=== PATIENT | male | born 1985 | race Hispanic/Latino ===

== ENCOUNTER 2019-03-23 05:55 | Inpatient (IN) | payer SELFPAY ==
[2019-03-23] MEDS ORDERED: MORPHINE 4 MG/ML SYR ONE (06:29)
[2019-03-23] MEDS ORDERED: ONDANSETRON 4 MG/2 ML VIAL ONE ×2 (06:29→10:24)
[2019-03-23] MEDS ORDERED: NA CHLORIDE 0.9% 1,000 ML ONE (06:29)
[2019-03-23 06:32] LABS: Absolute Lymphocytes (CBC) 0.9 K/uL (0.7-4.9); Basophils % 0.6 % (0-1.3); Hematocrit 45.5 % (39.6-49.0); Lymphocytes % 4.7 % (15.3-44.8); MPV 9.1 fL (7.6-11.3)
[2019-03-23 07:24] LABS: ALT/SGPT 41 U/L (12-78); AST/SGOT 28 U/L (15-37); Albumin 4.4 g/dL (3.4-5.0); Alkaline Phosphatase 66 U/L (45-117); BUN Blood Urea Nitrogen 14 mg/dL (7-18); Bicarbonate 26 mmol/L (21-32); Bilirubin Direct 0.2 mg/dL (0-0.2); Bilirubin Total 0.8 mg/dL (0.2-1.0); Glucose Level 132 mg/dL (74-106); Lipase 106 U/L (73-393); Potassium 4.3 mmol/L (3.5-5.1); Protein, Total 8.8 g/dL (6.4-8.2); Sodium Level 135 mmol/L (136-145)
[2019-03-23 07:38] LABS: Blood Morphology Comment NOT SEEN (NOT SEEN); Platelet Estimate ADEQ
--- NOTE | 2019-03-23 08:02 | RAD REPORT ---
EXAM DESCRIPTION: CTAbdomen Pelvis W Contrast - 03/23/2019 7:39 am CLINICAL HISTORY: Abdominal pain. ABD PAIN COMPARISON: No comparisons TECHNIQUE: Biphasic CT imaging of the abdomen and pelvis was performed with 100 ml non-ionic IV cont rast. All CT scans are performed using dose optimization technique as appropriate and may include automated exposure control or mA/KV adjustment according to patient size. FINDINGS: The lung bases are clear. The liver demonstrates diffuse fatty infiltration. The spleen, pancreas, adrenal glands and kidneys a re within normal limits. No bowel obstruction, free air, intra-abdominal free fluid or abscess. The appendix is dilated to 20 mm with surrounding mild inflammation. A large appendicolith is present at the base of the appendix. The findings are compatible with acute appendicitis. Trace free fluid is seen in the pelvis. No evid ence of significant lymphadenopathy. No suspicious bony findings. IMPRESSION: Acute appendicitis.
--- NOTE | 2019-03-23 08:15 | ER ---
Nurse's Notes [facility] Name: Fritz Sanders Age: 33 yrs Sex: Male : 1985 Arrival Date: 03/23/2019 Time: 05:57 Bed 13 Private MD: Diagnosis: Acute appendicitis Presentation: 03/23 06:06 Presenting complaint: Patient states: I am having lower right side abdominal pain that jb4 started yesterday and has continuously gotten worse. I went to [facility] and they told me to come here because it sounded like appendicitis. Transition of care: patient was not received from another setting of care. Onset of symptoms was March 22, 2019. Risk Assessment: Do you want to hurt yourself or someone else? Patient reports no desire to harm self or others. Initial Sepsis Screen: Does the patient meet any 2 criteria? No. Patient's initial sepsis screen is negative. Does the patient have a suspected source of infection? Yes: Acute abdominal pain. Care prior to arrival: None. 06:06 Method Of Arrival: Ambulatory jb4 06:06 Acuity: KRISTI 3 jb4 Historical: - Allergies: 06:08 No Known Allergies; jb4 - Home Meds: 06:08 None [Active]; jb4 - PMHx: 06:08 None; jb4 - PSHx: 06:08 None; jb4 - Immunization history:: Adult Immunizations up to date. - Social history:: Smoking status: Patient/guardian denies using tobacco, Patient/guardian denies using alcohol, street drugs. - Ebola Screening: : No symptoms or risks identified at this time. Screenin:08 Abuse screen: Denies threats or abuse. Nutritional screening: No deficits noted. jb4 Tuberculosis screening: No symptoms or risk factors identified. Fall Risk None identified. Assessment: 06:08 General: Appears in no apparent distress. uncomfortable, Behavior is calm, cooperative, jb4 appropriate for age. Pain: Complains of pain in right lower quadrant Pain does not radiate. Pain currently is 10 out of 10 on a pain scale. Quality of pain is described as stabbing. Neuro: Level of Consciousness is awake, alert, obeys commands, Oriented to person, place, time, situation. Cardiovascular: Patient's skin is warm and dry. Respiratory: Airway is patent Respiratory effort is even, unlabored, Respiratory pattern is regular, symmetrical. GI: Abdomen is round non-distended, Bowel sounds present X 4 quads. Abd is soft X 4 quads Abd is non tender in right upper quadrant, left upper quadrant and left lower quadrant Abdomen is tender to palpation in right lower quadrant Reports lower abdominal pain, nausea. : No deficits noted. No signs and/or symptoms were reported regarding the genitourinary system. EENT: No deficits noted. No signs and/or symptoms were reported regarding the EENT system. Derm: Skin is intact, Skin is pink, warm \T\ dry. Musculoskeletal: Circulation, motion, and sensation intact. Range of motion: intact in all extremities. 06:41 Reassessment: Patient appears in no apparent distress at this time. Patient and/or jb4 family updated on plan of care and expected duration. Pain level reassessed. Patient is alert, oriented x 3, equal unlabored respirations, skin warm/dry/pink. Patient states feeling better. 07:05 General: Appears in no apparent distress. comfortable, Behavior is calm, cooperative. rb1 Pain: Complains of pain in right upper quadrant and right lower quadrant Pain currently is 8 out of 10 on a pain scale. Neuro: Level of Consciousness is awake, alert, obeys commands, Oriented to person, place, time, situation. Cardiovascular: Capillary refill < 3 seconds is brisk in bilateral fingers. Respiratory: Airway is patent Respiratory effort is even, unlabored, Respiratory pattern is regular, symmetrical. Derm: Skin is pink, warm \T\ dry. 08:00 Reassessment: Patient appears in no apparent distress at this time. No changes from rb1 previously documented assessment. 09:00 Reassessment: Patient appears in no apparent distress at this time. Patient and/or rb1 family updated on plan of care and expected duration. Pain level reassessed. Patient is alert, oriented x 3, equal unlabored respirations, skin warm/dry/pink. Family at the bedside. 09:31 Reassessment: Called report to YURIY Hollingsworth. Information from the SBAR was given. All rb1 questions asked and answered. Vital Signs: 06:08 BP 139 / 92; Pulse 64; Resp 18; Temp 98.3; Pulse Ox 100% on R/A; Weight 86.18 kg (R); jb4 Height 5 ft. 10 in. (177.80 cm) (R); Pain 10/10; 07:05 BP 125 / 85; Pulse 60; Resp 17; Pulse Ox 97% on R/A; Pain 8/10; rb1 08:00 BP 118 / 83; Pulse 61; Resp 17; Pulse Ox 98% on R/A; rb1 08:30 BP 134 / 92; Pulse 55; Resp 16; Pulse Ox 99% on R/A; rb1 09:27 BP 118 / 85; Pulse 59; Resp 17; Temp 98.8; Pulse Ox 100% on R/A; Pain 6/10; rb1 06:08 Body Mass Index 27.26 (86.18 kg, 177.80 cm) jb4 ED Course: 05:57 Patient arrived in ED. ds1 06:04 Raghu Delacruz PA is PHCP. jmm 06:04 Troy Merrill MD is Attending Physician. jmm 06:06 Randall Butterfield, YURIY is Primary Nurse. jb4 06:07 Triage completed. jb4 06:08 Arm band placed on right wrist. jb4 06:08 Patient has correct armband on for positive identification. Placed in gown. Bed in low jb4 position. Call light in reach. Side rails up X 1. Pulse ox on. NIBP on. 06:20 Initial lab(s) drawn, by me, sent to lab. Inserted saline lock: 20 gauge in right jb4 forearm, using aseptic technique. Blood collected. 07:42 CT Abd/Pelvis - IV Contrast Only In Process Unspecified. EDMS 08:13 Gus Diaz MD is Hospitalizing Provider. [facility] 08:42 Warm blanket given. Pillow given. [facility] 09:51 No provider procedures requiring assistance completed. Patient admitted, IV remains in rb1 place. Administered Medications: 06:36 Drug: Zofran 4 mg Route: IVP; Site: right forearm; jb4 06:45 Follow up: Response: No adverse reaction; Nausea is decreased jb4 06:38 Drug: morphine 4 mg {Note: Rass score 0.} Route: IVP; Site: right forearm; jb4 06:45 Follow up: Response: No adverse reaction; Pain is decreased; RASS: Alert and Calm (0) 4 06:39 Drug: NS 0.9% 1000 ml Route: IV; Rate: 1 bolus; Site: right forearm; 4 07:42 Follow up: IV Status: Completed infusion rb1 08:38 Drug: Zosyn 3.375 grams Route: IVPB; Infused Over: 60 mins; Site: right antecubital; rb1 09:51 Follow up: Response: No adverse reaction; IV Status: Infusion continued upon admission rb1 Outcome: 08:14 Decision to Hospitalize by Provider. kylie 09:51 Admitted to Med/surg accompanied by tech, family with patient, via wheelchair, room rb1 204, with chart, Report called to YURIY Hollingsworth 09:51 Condition: stable 09:51 Instructed on the need for admit. 09:52 Patient left the ED. rb1 Signatures: Dispatcher [employer] EDMS Raghu Delacruz PA PA [facility] Jessica Hallman ds1 Krystin Galicia, RN RN rb1 Randall Butterfield, YURIY RN jb4 Theresa Diaz [facility]
[2019-03-23] MEDS ORDERED: MORPHINE 4 MG/ML SYR IV PRN (08:16)
[2019-03-23] MEDS ORDERED: PIPER/TAZO/NS 3.375gm 3.375 GM/100 ML BAG ONE (08:16)
[2019-03-23] MEDS ORDERED: ONDANSETRON 4 MG/2 ML VIAL IV PRN (08:16)
--- NOTE | 2019-03-23 08:16 | EDPHYS ---
Physician Documentation [facility] Name: Fritz Sanders Age: 33 yrs Sex: Male : 1985 Arrival Date: 03/23/2019 Time: 05:57 Bed 13 Private MD: ED Physician Troy Merrill HPI: 03/23 06:26 This 33 yrs old Male presents to ER via Ambulatory with complaints of jmm Abdominal Pain. 06:26 The patient presents with abdominal pain. Onset: The symptoms/episode began/occurred jmm gradually, 1 day(s) ago. The symptoms do not radiate. Associated signs and symptoms: Pertinent negatives: testicular pain. The symptoms are described as achy. This is a 33 year old male with no chronic medical conditions that presents to the ED with complaints of right lower abdominal pain beginning 1 day ago. Denies surgical history. Denies vomiting or diarrhea. . Historical: - Allergies: 06:08 No Known Allergies; jb4 - Home Meds: 06:08 None [Active]; jb4 - PMHx: 06:08 None; jb4 - PSHx: 06:08 None; jb4 - Immunization history:: Adult Immunizations up to date. - Social history:: Smoking status: Patient/guardian denies using tobacco, Patient/guardian denies using alcohol, street drugs. - Ebola Screening: : No symptoms or risks identified at this time. ROS: 06:26 Constitutional: Negative for fever, chills, and weight loss, Cardiovascular: Negative jmm for chest pain, palpitations, and edema, Respiratory: Negative for shortness of breath, cough, wheezing, and pleuritic chest pain. 06:26 Neuro: Negative for headache, weakness, numbness, tingling, and seizure. 06:26 Abdomen/GI: Positive for abdominal pain. 06:26 All other systems are negative. Exam: 06:26 Constitutional: This is a well developed, well nourished patient who is awake, alert, jmm and in no acute distress. Head/Face: atraumatic. Eyes: EOMI, no conjunctival erythema appreciated ENT: Moist Mucus Membranes Neck: Trachea midline, Supple Chest/axilla: Normal chest wall appearance and motion. Cardiovascular: Regular rate and rhythm. No edema appreciated Respiratory: Normal respirations, no respiratory distress appreciated 06:26 Back: Normal ROM Skin: General appearance color normal MS/ Extremity: Moves all extremities, no obvious deformities appreciated, no edema noted to the lower extremities Neuro: Awake and alert, normal gait Psych: Behavior is normal, Mood is normal, Patient is cooperative and pleasant 06:26 Abdomen/GI: Inspection: abdomen appears normal, Bowel sounds: normal, Palpation: soft, moderate abdominal tenderness, in the right lower quadrant. 06:26 Back: ROM is normal. 10:26 Eyes: Pupils: kdr Vital Signs: 06:08 BP 139 / 92; Pulse 64; Resp 18; Temp 98.3; Pulse Ox 100% on R/A; Weight 86.18 kg (R); jb4 Height 5 ft. 10 in. (177.80 cm) (R); Pain 10/10; 07:05 BP 125 / 85; Pulse 60; Resp 17; Pulse Ox 97% on R/A; Pain 8/10; rb1 08:00 BP 118 / 83; Pulse 61; Resp 17; Pulse Ox 98% on R/A; rb1 08:30 BP 134 / 92; Pulse 55; Resp 16; Pulse Ox 99% on R/A; rb1 09:27 BP 118 / 85; Pulse 59; Resp 17; Temp 98.8; Pulse Ox 100% on R/A; Pain 6/10; rb1 06:08 Body Mass Index 27.26 (86.18 kg, 177.80 cm) jb4 MDM: 06:13 Patient medically screened. [facility] 08:12 Data reviewed: vital signs, nurses notes. Counseling: I had a detailed discussion with [facility] the patient and/or guardian regarding: the historical points, exam findings, and any diagnostic results supporting the discharge/admit diagnosis, lab results, radiology results, the need for further work-up and treatment in the hospital. ED course: I discussed the patient with Dr. Diaz whom accepted admission. . 03/23 06:13 Order name: Basic Metabolic Panel; Complete Time: 07:26 [facility] 03/23 06:13 Order name: CBC with Diff [facility] 03/23 06:13 Order name: Creatinine for Radiology; Complete Time: 06:54 [facility] 03/23 06:13 Order name: Hepatic Function; Complete Time: 07:26 [facility] 03/23 06:13 Order name: Lipase; Complete Time: 07:26 [facility] 03/23 07:38 Order name: Manual Differential; Complete Time: 07:48 EDMS 03/23 08:22 Order name: Basic Metabolic Panel EDMS 03/23 08:22 Order name: Basic Metabolic Panel EDMS 03/23 08:22 Order name: CBC with Automated Diff EDMS 03/23 08:22 Order name: CBC with Automated Diff EDMS 03/23 08:22 Order name: Lipase EDMS 03/23 08:22 Order name: Lipase EDMS 03/23 08:22 Order name: Liver (Hepatic) Function EDMS 03/23 08:22 Order name: Liver (Hepatic) Function EDMS 03/23 06:13 Order name: IV Saline Lock; Complete Time: 06:46 [facility] 03/23 06:13 Order name: Labs collected and sent; Complete Time: 06:46 [facility] 03/23 06:46 Order name: CT Abd/Pelvis - IV Contrast Only; Complete Time: 08:09 [facility] 03/23 08:22 Order name: NPO; Complete Time: 09:53 [facility] 03/23 08:50 Order name: Type And Screen rb1 Administered Medications: 06:36 Drug: Zofran 4 mg Route: IVP; Site: right forearm; jb4 06:45 Follow up: Response: No adverse reaction; Nausea is decreased jb4 06:38 Drug: morphine 4 mg {Note: Rass score 0.} Route: IVP; Site: right forearm; jb4 06:45 Follow up: Response: No adverse reaction; Pain is decreased; RASS: Alert and Calm (0) jb4 06:39 Drug: NS 0.9% 1000 ml Route: IV; Rate: 1 bolus; Site: right forearm; jb4 07:42 Follow up: IV Status: Completed infusion rb1 08:38 Drug: Zosyn 3.375 grams Route: IVPB; Infused Over: 60 mins; Site: right antecubital; rb1 09:51 Follow up: Response: No adverse reaction; IV Status: Infusion continued upon admission rb1 Disposition: 08:12 Chart complete. [facility] Disposition: 03/23/19 08:14 Hospitalization ordered by Gus Diaz for Inpatient Admission. Preliminary diagnosis is Acute appendicitis. - Bed requested for Telemetry/MedSurg (Inpatient). - Status is Inpatient Admission. rb1 - Condition is Stable. - Problem is new. - Symptoms are unchanged. UTI on Admission? No Addendum: 03/27/2019 07:04 Co-signature as Attending Physician, Troy Merrill MD. r n Signatures: Dispatcher [employer] EDMabel Hatch, RN RN dw Azam Yao MD MD kdr Mickail, Joel, PA PA jmm Nieto, Roman, MD MD rn Krystin Galicia, RN RN rb1 Randall Butterfield, RN RN jb4 Corrections: (The following items were deleted from the chart) 03/23 09:06 08:14 Hospitalization Ordered by Gus Diaz MD for Inpatient Admission. Preliminary dw diagnosis is Acute appendicitis. Bed requested for Telemetry/MedSurg (Inpatient). Status is Inpatient Admission. Condition is Stable. Problem is new. Symptoms are unchanged. UTI on Admission? No. [facility] 09:52 09:06 03/23/2019 08:14 Hospitalization Ordered by Gus Diaz MD for Inpatient rb1 Admission. Preliminary diagnosis is Acute appendicitis. Bed requested for Telemetry/MedSurg (Inpatient). Status is Inpatient Admission. Condition is Stable. Problem is new. Symptoms are unchanged. UTI on Admission? No. dw
[2019-03-23] MEDS: D5 0.45 NS 1,000 ML IV SCH ×2 (10:09→17:38)
[2019-03-23] MEDS ORDERED: PROPOFOL 200 MG/20 ML VIAL IV ONE (10:21)
[2019-03-23] MEDS ORDERED: LIDOCAINE 1% MPF 5 ML VIAL ONE (10:23)
[2019-03-23] MEDS ORDERED: ROCURONIUM 50 MG/5 ML VIAL IV ONE (10:23)
[2019-03-23] MEDS ORDERED: MIDAZOLAM HCL 2 MG/2 ML INJ ONE (10:23)
[2019-03-23] MEDS ORDERED: NEOSTIGMINE 1 MG/ML -5 ML ONE (10:24)
[2019-03-23] MEDS ORDERED: FENTANYL CITR 100 MCG/2 ML ONE ×2 (10:24→11:32)
[2019-03-23] MEDS ORDERED: GLYCOPYRROLATE 0.2 MG/ML SYR ONE ×2 (10:25)
[2019-03-23] MEDS ORDERED: SUCCINYLCHOLINE 20 MG/ML (10 ML) IV ONE (10:45)
[2019-03-23] MEDS ORDERED: Ringers Lactate 1,000 ML IV ONE ×2 (10:52→11:42)
--- NOTE | 2019-03-23 12:00 | P.BOP ---
Preoperative diagnosis: acute appendicitis Postoperative diagnosis: same, acute suppurative appendicitis Primary procedure: Laparoscopic appendectomy Shell Sorter: Karen More (adelita) Estimated blood loss: <10cc Specimen: pollo Findings: acute suppurative appendicitis Anesthesia: General Complications: None Transferred to: Recovery Room Condition: Good
[2019-03-23] MEDS ORDERED: HYDROCODONE/APAP 7.5/325 MG TAB PO PRN (12:03)
[2019-03-23 13:04] VITALS: BMI 27.2
[2019-03-23] MEDS ORDERED: INFLUENZA VACCINE (for 3y+) 0.5 ML DOSE IMVAC ONE (16:00)
[2019-03-23] MEDS: PIPER/TAZO/NS 3.375gm 3.375 GM/100 ML BAG IVPB SCH (17:27)
[2019-03-23] MEDS: ACETAMINOPHEN 500 MG TAB PO PRN (20:00)
--- NOTE | 2019-03-23 20:56 | HP ---
Date of Admission: 03/23/2019 Diagnosis: Acute appendicitis. History Of Present Illness: This is the case of a 33-year-old patient, who comes to us complaining o f a new onset of abdominal pain, 1 day of duration, in the right lower quadrant and periumbilical reg ion. He stated pain is constant, got worse overnight. This morning he comes to the ER. He denies a ny dysuria, hematuria, hematochezia, or melena. Denies any recent traveling out of the country. Den ies any family member sick at home. Denies any trauma. Allergies: NONE. Medical Problems: None. Medications: None. Surgeries: None. Social History: He does smoke. He does not drink alcohol. Review of Systems: Ten points otherwise unremarkable. Physical Examination: General: Patient is awake and alert. HEENT: Pupils are equal and reactive, anicteric. Neck: Supple. Chest: Clear. Heart: S1, S2. Abdomen: Soft and depressible. Right lower quadrant tenderness with Rovsing sign and psoas sign pos itive. Genitalia: No tenderness. Extremities: Full range of motion x4. Good peripheral pulses. Rectal: Deferred. Neurologic: Cranial nerves 2 through 12 grossly within normal limits. Laboratory Data: WBC count of 19, hemoglobin of 15.7, neutrophils 89.1, and potassium 4.3. Sodium i s 135, total bilirubin of 0.8. CAT scan of abdomen and pelvis interpreted with Dr. Vargas as acute pollo endicitis. Assessment And Plan: This is a 33-year-old patient with acute appendicitis, laparoscopic possible op en appendectomy fully explained to the patient, which include, but are not limited to infection, blee ding, damage to adjacent structures, anesthesia complications, myocardial infarction, and even . He also understands this may not relieve any symptoms. He might need more than one surgical interv ention. He understood, signed the consent. The OR was immediately notified. YOBANI Voice ID: [id number]
--- NOTE | 2019-03-23 21:11 | OP ---
Date of Procedure: 03/23/2019 Surgeon: Gus Diaz MD Shell Plater: Karen Chu. Preoperative Diagnosis: Acute appendicitis. Postoperative Diagnosis: Acute suppurative appendicitis. Procedure: Laparoscopic appendectomy. Estimated Blood Loss: Less than 10 cc. Specimen: Appendix. Findings: Acute suppurative appendicitis. Anesthesia: General plus local. Indications: This is the case of a 33-year-old patient, with 1 day history of abdominal pain diagnos ed with acute appendicitis. The benefits, alternatives, and risks of laparoscopic, possible open pollo endectomy discussed with the patient, which include but are not limited to infection, bleeding, damag e to adjacent structures, anesthesia complication, abscess, ND, even . He also understands this may not relieve any symptoms. He might need more than one surgical intervention. He understood, si gned the consent. Description Of Procedure: Patient was brought to the operating room, placed in supine position. Ane sthesia was done without complication. Abdominal area was prepped and draped in usual sterile fashio n. Marcaine 0.5% was injected for local anesthetic, followed by sharp incision of the skin in the in fraumbilical region. Incision was carried down to fascia, which was opened under direct vision. Per itoneum was encountered, opened under direct vision. Vicryl #1 placed inside of the fascia. Efrain trocar was carefully introduced. No bleeding was obtained. I placed 2 more trocars, 5 mm each one o f them suprapubic and left lower quadrant using same technique, which consisted of local anesthetic, sharp incision of the skin, introduction of the trocars under direct vision. This allowed me to visu gavi the very inflamed suppurative appendix. The base of the appendix seems to be spared for that, so we created a window in the base of the appendix, transected that with an Endo ELIZABETH 45 mm 3.5, and t he mesoappendix with an Endo ELIZABETH 45 mm 2.5. Further hemostasis was obtained with the help of hemocli ps. The area was irrigated profusely until completely clean. We did not see any bleeding in the bow el leak. At that moment, I proceeded to remove the trocars under direct vision. Deflated the pneumo peritoneum. Closed the fascia with #1 Vicryl, irrigated subcutaneous tissue, closed that with 3-0 ch romic and skin with ivis. Sponge count and instrument counts were correct. Patient tolerated the procedure well. Patient was sent to the recovery in stable condition. EDDIE/BIRGIT Voice ID: [id number] Report ID: [id number]
[2019-03-24] MEDS: PIPER/TAZO/NS 3.375gm 3.375 GM/100 ML BAG IVPB SCH ×2 (00:35→08:53)
[2019-03-24 06:26] LABS: Potassium 4.4 mmol/L (3.5-5.1)
[2019-03-24 06:40] LABS: Absolute Lymphocytes (CBC) 1.5 K/uL (0.7-4.9); Basophils % 0.5 % (0-1.3); Hematocrit 42.1 % (39.6-49.0); Lymphocytes % 11.9 % (15.3-44.8); MPV 9.4 fL (7.6-11.3); RBC Red Blood Cell Count 4.67 M/uL (4.33-5.43)
[2019-03-24] MEDS: ACETAMINOPHEN 500 MG TAB PO PRN (09:25)
[2019-03-24 13:39] VITALS: BP 137/71; TEMP 97.6
[2019-03-24 16:30] VITALS: O2SAT 96
--- NOTE | 2019-03-24 18:07 | P.DS ---
Admission Date: 03/23/19 Discharge Date: 03/24/19 Disposition: ROUTINE DISCHARGE Discharge Condition: GOOD Vital Signs/Physical Exam: Temp Pulse Resp BP Pulse Ox 97.6 F 78 16 137/71 96 03/24/19 12:00 03/24/19 12:00 03/24/19 12:00 03/24/19 12:00 03/24/19 12:00 General: Alert, Oriented x3, Cooperative HEENT: PERRLA, EOMI Neck: Supple Respiratory: Normal air movement Cardiovascular: No edema Gastrointestinal: Soft and benign Laboratory Data at Discharge: WBC 12.7 K/uL (4.3-10.9) H D 03/24/19 05:29 Hgb 14.5 g/dL (13.6-17.9) 03/24/19 05:29 Hct 42.1 % (39.6-49.0) 03/24/19 05:29 Plt Count 256 K/uL (152-406) 03/24/19 05:29 Sodium 142 mmol/L (136-145) 03/24/19 05:29 Potassium 4.4 mmol/L (3.5-5.1) 03/24/19 05:29 BUN 10 mg/dL (7-18) 03/24/19 05:29 Creatinine 1.10 mg/dL (0.55-1.3) 03/24/19 05:29 Glucose 120 mg/dL (74-106) H 03/24/19 05:29 Total Bilirubin 0.8 mg/dL (0.2-1.0) 03/23/19 06:20 AST 28 U/L (15-37) 03/23/19 06:20 ALT 41 U/L (12-78) 03/23/19 06:20 Alkaline Phosphatase 66 U/L (45-117) 03/23/19 06:20 Lipase 106 U/L (73-393) 03/23/19 06:20 Home Medications: Ciprofloxacin HCl [Cipro 500 MG Tablet] 500 mg PO BID #10 tab 03/24/19 Codeine/APAP [Tylenol W/Codeine #3 tab] 1 tab PO Q4HP PRN #30 tab 03/24/19 New Medications: Ciprofloxacin HCl [Cipro 500 MG Tablet] 500 mg PO BID #10 tab Codeine/APAP [Tylenol W/Codeine #3 tab] 1 tab PO Q4HP PRN #30 tab PRN Reason: Pain Patient Discharge Instructions: keep area dry for 24h then may remove gauze and shower Diet: AHA Activity: No lifting more than 10 lbs Followup: Gus Diaz MD [ACTIVE - CAN ADMIT] - 1 Week
== END 2019-03-24 16:49 | disposition home or self-care (01) | DRG 343 ==
LOC: ER 05:55 → ERHOLD 08:15 → 2ND 09:34
PROVIDERS: ADMIT Surgery; ATTEND Surgery
PROC: 0DTJ4ZZ Resection of Appendix, Percutaneous Endoscopic Approach (ICD-10-PCS; principal; 2019-03-23 12:00)
DX: K35.80 Unspecified acute appendicitis (principal); Z23 Encounter for immunization
CPT/HCPCS: 36415; 74177; 80048; 80076; 83690; 85025; 86850; 86900; 86901; 88304; 90471; 96361; 96365; 96375; 99285; J0330; J2250; J2405; J2543; J2704; J2710; J3010; J7030; J7120; J7799; Q2035; Q9967